=== PATIENT | female | born 1965 | race Asian ===

== ENCOUNTER 2018-04-12 14:51 | Inpatient (IN) | payer OTHER ==
[~2018-04-12] VITALS: Ht 149.9 cm; Wt 49.0 kg
[2018-04-12 17:45] VITALS: BP 161/91
--- NOTE | 2018-04-12 19:41 | NUR ---
PT ARRIVED AT 1730 FROM [facility] ON A GURNEY. PT TRANSFERED TO BED WITH 2 PERSON ASSIST. ALERT AND ORIENTED TO PERSON AND PLACE. TRACH CLEANED AND NECKTIE CHANGED, CONNECTED TO HUMIDIFIED AIR R/T DRY THICK MUCOUS SUCTIONED. PT SOUNDS CONGESTED AND HAS A CONGESTED PRODUCTIVE COUGH. VITALS STABLE. PT UP WITH 2 PERSON PIVOT TRANSFERS, LEANING TOWARDS THE LEFT SIDE. HAS LEFT SIDED WEAKNESS. ATE ALL HER DINNER. Q1H VISUAL CHECKS. FALL PRECAUTIONS IN PLACE. CALL LIGHT WITHIN REACH
[2018-04-12 21:22] VITALS: BP 168/95
[2018-04-13] MEDS ORDERED: HUMALOG100 UNIT/1 (00:49)
[2018-04-13] MEDS ORDERED: PEPCID20 MG PO (00:53)
[2018-04-13] MEDS ORDERED: SENNA-TIME S T1 EACH PO (00:55)
[2018-04-13] MEDS ORDERED: HYDROCHLOROTH12.5 M1 PO (00:56)
[2018-04-13] MEDS ORDERED: REMERON15 MG PO (00:57)
[2018-04-13] MEDS ORDERED: FEVERALL JR 32325 M1 RECTAL (01:03)
[2018-04-13] MEDS ORDERED: LISINOPRIL5 MG PO (01:04)
[2018-04-13] MEDS ORDERED: LIPITOR40 MG PO (01:05)
--- NOTE | 2018-04-13 02:58 | NUR ---
assumed care at approx 1900 evening 04/12. pt lying in bed with head of bed elevated. pt awake and alert sometimes difficult to understand dialect. pt also missing some teeth. pt with trach in place with speaking valve on and trach shield. pt took meds with water tolerating well. pt incontinent of urine and also assisted up to bsc to void. bed alarm on and call light in reach. will continue to monitor.
[2018-04-13 05:26] VITALS: BP 116/64
[2018-04-13 06:10] LABS: HEMATOCRIT 45.5 % (37.0-47.0); HEMOGLOBIN 14.6 gm/dL (12.0-15.0); MCH 25.2 pg (26.0-34.0); MCHC 32.1 g/dL (28.0-37.0); MCV 78.5 fL (80.0-100.0); RBC 5.79 mil/uL (4.20-5.00); RDW 13.7 % (10.5-14.5); WBC 8.2 thou/uL (4.0-11.0)
[2018-04-13 06:21] LABS: CALCIUM 9.2 mg/dL (8.5-10.1); CREATININE 0.7 mg/dL (0.6-1.0); POTASSIUM 3.7 mmol/L (3.5-5.1)
[2018-04-13 07:35] VITALS: BP 117/69
[2018-04-13 11:50] VITALS: BP 113/69
--- NOTE | 2018-04-13 16:17 | NUR ---
ASSUMED CARE AT APPROX 0715. PATIENT A/O X2. DENIES PAIN. TRACH IN PLACE. PATIENT FOUND WITH INNER CANULA OF TRACH DISPLACED. RT NOTIFIED. TRACK MASK IN PLACE OVER TRACH APPLIANCE. PATIENT NOT IN RESPIRATORY DISTRESS, SATS MAINTAINED. RT MANAGED INNER CANULA, REPLACE. ENVIRONMENTAL SERVICES ASSOCIATE NOTIFIED, ROUNDED ON PATIENT. PATIENT PARTICIPATED IN THERAPIES, ST MANAGING DIET CONSISTENCY, NOTED PATIENT MUST HAVE 100% SUPERVISION FOR PO INTAKE. RETAIL MERCHANDISER TECHNICIAN CONSULTED FOR POOR INTAKE. BP LOW, PARAMETERS RECEIVED FOR BP MEDS. FALL PRECAUTIONS IN PLACE. ROUNDED ON FREQUENTLY. WILL CONTINUE TO MONITOR.
[2018-04-13 20:22] VITALS: BP 115/78
--- NOTE | 2018-04-14 03:24 | NUR ---
assumed care at approx 1900 evening 04/13. pt lying in bed with head of bed elevated at change of shift. trach in place with speaker valve on. pt intermittently takes inner cannula of trach out. cleaned cannula and reinserted without difficulty. pt wearing trach shield with 02 10L. pt took hs meds with water tolerating well. pt appears to be sleeping soundly. bed alarm on and call light in reach. will continue to monitor.
[2018-04-14 07:25] VITALS: BP 121/75
--- NOTE | 2018-04-14 10:50 | NUR ---
ASSUMED CARES AT 0700. PT AWAKE, ORIENTED TO PERSON AND PLACE ONLY. VITALS REMAINS STABLE. DENIES PAIN. TRACH REMAINS INTACT AND PATENT. SITE CLEANED, INNER CANNULA CLEANED AND TRACH TIE CHANGED. SECRETIONS REMAIN SEMI-THICK CREAM COLORED. PT COUGHING ALOT THIS AM, DECREASED THROUGHOUT THE AM. ABDOMEN FIRM AND ROUND, LAST BM 04/10, STOOL SOFTENORS ADMINISTERED, BS ACTIVE*4. PT UP WITH 1-2 PERSON PIVOT TRANSFER AND TOLERATED WELL. AMBULATED WITH THERAPY THIS AM. Q1H VISUAL CHECKS. CALL LIGHT WITHIN REACH. FALL PRECAUTIONS IN PLACE
--- NOTE | 2018-04-14 15:24 | HC ---
[facility] [place] [address] [place] [address] CONSULTATION Name: EDEN DUARTE Room #: 506-1 ADM IN M.R.#: [id number] Admission: 04/12/18 Attend Phys: Dheeraj Chadwick MD Discharge: Date of : 61 Report #: [id number] THIS REPORT FOR: //name// CC: Dheeraj Chadwick FAM physician/PCP REFERRING PHYSICIAN: Dr. Chadwick. REASON FOR REFERRAL: Chronic respiratory failure, chronic trach. HISTORY OF PRESENT ILLNESS: The patient is a 53-year-old female who had a stroke in 2017. She had a left hemispheric stroke resulting in respiratory failure. She required tracheostomy. She has been using a speaking valve or Passy-Giselle valve since then. She is admitted to the rehabilitation for ongoing therapy. Previous records show the patient had an acute right frontal hemorrhage. No intervention was performed. The patient was most recently admitted on 04/07/[address] [facility] CT head shows acute right frontal hemorrhage. No surgical intervention was performed. The patient was stabilized and subsequently transferred to the rehabilitation unit of [facility]. The patient is awake, alert, in no distress. She is not able to provide adequate history. PAST MEDICAL HISTORY: As mentioned above, left hemispheric CVA in 2017, chronic respiratory failure with chronic trach tube since 2017, osteoarthritis, hypertension, diabetes mellitus type 2, hyperlipidemia, medical noncompliance. ALLERGIES: None. MEDICATIONS ON TRANSFER: Include insulin, Pepcid, hydrochlorothiazide, Remeron, lisinopril, atorvastatin. FAMILY HISTORY: Noncontributory. SOCIAL HISTORY: She has family in town. No history of tobacco or alcohol use. REVIEW OF SYSTEMS: Deferred as the patient is not a good historian. PHYSICAL EXAMINATION: GENERAL: She is awake, alert, in no distress. VITAL SIGNS: Temperature is 99 degrees Fahrenheit, pulse is 100, respiratory rate is 20, blood pressure 117/69 mmHg, saturation 100%. HEENT: Normocephalic, atraumatic. NECK: Supple, without any lymphadenopathy or thyromegaly. [facility] [address] [place] [address] CONSULTATION Name: EDEN DUARTE Room #: 506-1 ADM IN M.R.#: [id number] Admission: 04/12/18 Attend Phys: Dheeraj Chadwick MD Discharge: Date of : 61 Report #: [id number] tracheostomy. CHEST: Breath sounds are fair due to poor effort. Otherwise, no obvious rales or wheezes. CARDIOVASCULAR: Regular rhythm, no murmurs or gallop. Pulses are 2+/4+ bilaterally. BREASTS: Deferred. ABDOMEN: Soft, nontender, no organomegaly or masses felt. GENITOURINARY: Deferred. RECTAL: Deferred. EXTREMITIES: There is no edema, cyanosis or clubbing. NEUROLOGIC: She has a weak left upper extremity and lower extremities. Has a mild left facial droop. She has some verbalization inability. LABORATORY DATA: Chest x-ray is pending. Electrolytes are normal. WBC is unremarkable. IMPRESSION: 1. Right hemispheric cerebrovascular accident, chronic respiratory failure, chronic trach. 2. Chronic trach, stable from pulmonary standpoint. 3. Recent right intracranial hemorrhage with left hemispheric cerebrovascular accident in 2017. 4. Diabetes mellitus type 2. 5. Hypertension. RECOMMENDATION: Overall, the patient is relatively stable from pulmonary standpoint. Continue routine trach care. Keep saturation 92-90%. DVT and GI prophylaxis is recommended. Given the recent intracranial hemorrhage, recommend SCDs as appropriate. Thank you for this consultation. <ELECTRONICALLY SIGNED> By: Blu Quiles MD 04/14/18 1524 [id number] [id number] Blu Quiles MD /nt
[2018-04-14 19:45] VITALS: BP 121/81
--- NOTE | 2018-04-15 02:47 | NUR ---
ASSUMED CARE AT START OF SHIFT , PT TRACH IN PLACE SUCTIONED THICK VELA BLOOD TINGE SECRETIONS, TOLERATED WELL. ALERT TO SELF AND SITUATION. PO MEDICATION TAKEN WITHOUT DIFF, PT UP TO BSC TO VOID STOOD BUT TEND TO LEAN TO LEFT SIDE. SAT 97 %. BED ALARM ON FOR SAFETY.RESTED WELL THROUGHOUT HOURLY ROUNDS WILL CONINTUE WITH CURRENT PLAN OF CARE, WILL REPORT CHANGES.
[2018-04-15 07:15] VITALS: BP 128/73
--- NOTE | 2018-04-15 10:55 | NUR ---
ASSUMED PT CARE AT 0700. ASSESSED PT AT 0820 AND IS CHARTED. VITAL SIGNS STABLE. PT AWAKE, ALERT/ORIENTED TO PERSON AND TIME. DUE TO LANGUAGE BARRIER IT IS DIFFICULT TO ASSESS FULL ORIENTATION. PT DENIES PAIN AT THIS TIME. TRACH IS ASYMPTOMATIC, NO DRAINAGE NOTED. PT ON ROOM AIR AND SHIELD AT TIMES. NO OTHER CONCERNS AT THIS TIME. WILL CONTINUE WITH CURRENT PLAN OF CARE.
--- NOTE | 2018-04-15 15:05 | NUR ---
PT DOING WELL THIS SHIFT. HAS BEEN UP IN CHAIR MOST OF DAY. PARTICIPATED IN THERAPY AND TOLERATED WELL. NO NEW COMPLAINTS OR CONCERNS AT THIS TIME. WILL CONTINUE WITH CURRENT CARE.
--- NOTE | 2018-04-15 17:51 | NUR ---
SUPERVISED PT FOR DINNER. PT FED SELF AND TOLERATED WELL. NO COUGHING NOTED AFTER SWALLOWING. ASSISTED PT BACK TO BED FOR THE NIGHT WITH MINIMAL ASSISTANCE. PT NEEDED CUEING TO STEP OVER TO BED WITH WALKER, STILL TENDS TO LEAN LEFT. PLACED SHIELD OVER TRACH FOR HUMIDITY.
[2018-04-15 19:55] VITALS: BP 94/58
--- NOTE | 2018-04-16 01:02 | NUR ---
ASSUMED CARE AT START OF SHIFT , TRACH CARE GIVEN WITH KIT TOLERATED WELL, SAT 98%, DENIES SOA OR PAIN, ASSISTED TO BSC , GAIT UNSTEADY LEFT SIDED WEAKNESS NOTED. PO MEDICATION TAKEN EASLIY, RESTING WELL THROUGHOUT HOURLY ROUNDS.
[2018-04-16 08:24] VITALS: BP 110/67
--- NOTE | 2018-04-16 12:29 | NUR ---
team meeting, recommendation re-team.
--- NOTE | 2018-04-16 15:08 | NUR ---
ASSUMED CARE THIS AM, SHIFT ASSESSMENT DONE, BP LOW THIS AM. SITTING IN THE CHAIR THIS AM. TRACHE CARE DONE BY RT. DENIES ANY NAUSEA, VOMITING, PAIN. WILL CONTINUE TO ASSIST WITH ADLs NEEDED.
[2018-04-16 19:31] VITALS: BP 143/86
--- NOTE | 2018-04-17 02:07 | NUR ---
ONCE NEEDED REMINDER TO REMOVE SPEAKING VALVE WHEN SLEEPING TO GET FULL BENEFIT OF HUMIDITY. VALVE BACK ON AND OBSERVED WHILE EATING A LITTLE BIT OF FOOD FROM HOME. LEANS SEVERELY TO THE LEFT WHEN UP WITH WALKER AND GAIT BELT.
[2018-04-17 04:07] LABS: ANION GAP 8 mmol/L (7-16); BUN 15 mg/dL (7-18); CALCIUM 8.8 mg/dL (8.5-10.1); CHLORIDE 98 mmol/L (98-107); CO2 31 mmol/L (21-32); CREATININE 0.8 mg/dL (0.6-1.0); GLUCOSE 374 mg/dL (74-106); MAGNESIUM 2.1 mg/dL (1.8-2.4); POTASSIUM 3.8 mmol/L (3.5-5.1); SODIUM 137 mmol/L (136-145)
[2018-04-17 05:40] LABS: ABSOLUTE NEUTROPHILS 8.6 thou/uL (1.4-8.2); BASOPHILS 0.2 % (0.0-2.0); EOSINOPHILS 3.6 % (0.0-3.0); HEMATOCRIT 37.4 % (37.0-47.0); HEMOGLOBIN 12.1 gm/dL (12.0-15.0); LYMPHOCYTES 8.5 % (24.0-44.0); MCH 25.4 pg (26.0-34.0); MCHC 32.4 g/dL (28.0-37.0); MCV 78.4 fL (80.0-100.0); MONOCYTES 9.3 % (1.0-8.0); PLATELET COUNT 179 thou/uL (150-400); POLYS 78.4 % (36.0-66.0); RBC 4.77 mil/uL (4.20-5.00); RDW 13.2 % (10.5-14.5); WBC 10.9 thou/uL (4.0-11.0)
[2018-04-17 07:15] VITALS: BP 126/80
[2018-04-17 08:29] LABS: CHOLESTEROL 111 mg/dL (<200); HDL CHOLESTEROL 45 mg/dL (>40); LDL CHOLESTEROL 53 mg/dL (<100); TC:HDL 2.5 Ratio (Not establshd); TRIGLYCERIDE 67 mg/dL (<150); VLDL 13 mg/dL (<40)
--- NOTE | 2018-04-17 10:39 | NUR ---
ASSUMED CARES AT 0700. PT IN BED, AWAKE, ALERT AND ORIENTED*4. C/O GENERALIZED BODY PAIN /, ACETAMINOPHEN ADMINISTERED NEEDED. VITALS REMAINED STABLE. TRACH REMAINS INTACT AND PATENT. SECRETIONS REMAIN THICK AND BLOOD TINGED, HUMIDIFIED AIR ON AT NOC, PUSSY TONYA ON DURING DAYS. INNER CANNULA CLEANED NEEDED. LS CLEAR/DIMINISHED. BS ACTIVE *4, ABDOMEN SOFT AND DISTENDED. LAST BM 04/14. PT UP WITH 2 PERSON PIVOT TRANSFERS AND TOLERATED WELL. Q1H VISUAL CHECKS. CALL LIGHT WITHIN REACH. FALL PRECAUTIONS IN PLACE
[2018-04-17 19:39] VITALS: BP 118/78
[2018-04-17 21:07] LABS: GLYCOHEMOGLOBIN (HGB A1C) 8.7 % (4.8-5.6)
--- NOTE | 2018-04-18 03:12 | NUR ---
assumed care at approx 1900 evening 04/17. pt lying in bed at change of shift resting and looking at cell phone. trach in place with speaker valve and trach shield. pt took hs meds with pudding tolerating well. pt with loose, thick secretions from trach. pt appears to be sleeping fairly well with head of bed elevated. call light in reach and bed alarm on. will continue to monitor.
[2018-04-18 07:49] VITALS: BP 128/74
--- NOTE | 2018-04-18 11:44 | NUR ---
ASSUMED CARE OF PT AT 0700. PT IS A&OX4. HAS A TRACH WITH OXYGEN SHILED ON 10.[address]. SUCTION AVAILABLE AT BEDSIDE. PT IS STABLE. REPORTED PAIN (SORENESS) AT TRACH SITE. PAIN MED ADMINISTERED. PT IS UP WITH 1 ASSIST, GB, WALKER. FALL PRECAUTIONS & HOURLY ROUNDING MAINTAINED. LABS & VITALS REVIEWED. WILL CONTINUE TO MONITOR. PT IS CURRENTLY WORKING WITH PHYSICAL THERAPIST.
[2018-04-18 19:43] VITALS: BP 127/81
[2018-04-19 05:45] VITALS: BP 108/75
--- NOTE | 2018-04-19 06:40 | NUR ---
Pt a/o x 4. Trach in place with face shield on O2 10 L / humidifier. Moderate pink/blood tinged secretion, tracheal suction provided, trach care provided, dressing changed. VSS. Denies pain or any other discomfort at this time. Up with assist, gait belt, walker. Tend to lose balance when initially up and walking. Special precautions needed. Bed alarm on. All other fall precautions maintained. Call light within reach. Will continue to monitor.
[2018-04-19 08:38] VITALS: BP 117/83
--- NOTE | 2018-04-19 10:28 | NUR ---
ASSUMED CARES AT 0700. PT AWAKE, ALERT AND ORIENTED *4 BUT FORGETFUL. VITALS STABLE. DENIES PAIN. C/O ABDOMINAL DISCOMFORT AND NAUSEA. ABDOMEN DISTENDED, BS HYPOACTIVE, LAST BM 04/14, DUCOLAX SUPPOSITORY ADMINISTERED. TRACH REMAINS INTACT AND PATENT, SECRETIONS ARE THICK CREAM AND BLOOD TINGED, TRACH SITE CARE COMPLETED AND DRESSING CHANGED. PT UP WITH 1 PERSON ASSIST, LEANS TO THE LEFT SIDE WITH TRANSFERS. CONTINUES TO REQUIRED 100% SUPERVISION WITH MEALS. Q1H VISUAL CHECKS. CALL LIGHT WITHIN REACH. FALL PRECAUTIONS IN PLACE
[2018-04-19 19:52] VITALS: BP 121/74
--- NOTE | 2018-04-20 01:58 | NUR ---
PT ALERT AND ORIENTED X 4. AMB TO BR WITH WALKER AND ASSIST X 1. 02 ON AT 10L PER TRACH MASK. COUGH PRODUCTIVE OF PINK SPUTUM. PT DENIES PAIN OR DISCOMFORT. BED ALARM ON FOR SAFETY. PT APPEARS TO BE SLEEPING ON HOURLY ROUNDS.
--- NOTE | 2018-04-20 06:24 | NUR ---
BLOOD PRESSURE 114/76 THIS MORNING. HCTZ HELD PER PARAMETERS.
[2018-04-20 07:00] VITALS: BP 110/72
--- NOTE | 2018-04-20 10:53 | NUR ---
ASSUMED CARES AT 0700. PT AWAKE, ALERT AND ORIENTED *4 BUT FORGETFUL. REPORTS SHE SLEPT GOOD LAST NIGHT. VITALS STABLE ON RA THIS AM. B/P 110/72, HR 82. HELD LISINOPRIL ORDERED. C/0 GENERALIZED PAIN 5/10, GAVE PRN TYLENOL, PAIN IS 2/10 NOW. REASSESSMENT PER CHART. LAST BM WAS YESTERDAY. SCHEDULE COLACE AND MIRALAX GIVEN SCHEDULED. PT UP TO DINNING ROOM ATE 90% BREAKFAST THIS AM. RT GAVE PT BREATHING TX THIS AM, TRACE IS INTACT AND PATENT, SECRETIONS ARE THICK CREAM AND BLOOD TINGED, TRACH SITE CARE COMPLETED AND DRESSING CHANGED BY RT THIS AM. PT UP WITH 1 PERSON ASSIST WITH MIN ASSIST AND A WALKER. LEANS TO THE LEFT SIDE WITH TRANSFERS. CONTINUES TO REQUIRED 100% SUPERVISION WITH MEALS. Q1H VISUAL CHECKS. CALL LIGHT WITHIN REACH. FALL PRECAUTIONS IN PLACE.
[2018-04-20 20:18] VITALS: BP 125/83
--- NOTE | 2018-04-21 01:35 | NUR ---
assumed care at approx 1900 evening 04/20. pt lying in bed with head of bed elevated resting, denies complaints. pt with trach in place on room air. pts O2 sat checked and 95%. pt took hs meds with applesauce tolerating well. pt appears to be sleeping soundly with hourly rounding checks. bed alarm on and call light in reach. will continue to monitor.
[2018-04-21 06:50] VITALS: BP 116/73
[2018-04-21 07:40] VITALS: BP 115/74
--- NOTE | 2018-04-21 14:28 | NUR ---
ASSUMED CARE AT 0715 THIS MORNING. PT. NOTED TO BE IN BED RESTING. BLOOD SUGAR AT 0600 WAS 206, AT 0700 WAS 143, AT NOON WAS 223. UP TO DINING ROOM FOR MEALS. RESTING IN BED BETWEEN MEALS. PT. ASKED ON SEVERAL OCCASIONS TO TURN WHILE IN BED. SHE REFUSED. PT. HAS TRACH. TRACH INNER PART IN CUP ON NIGHTSTAND SOAKING. SHE WAS 92% ON ROOM AIR TODAY. PULMONARY CALLED FOR TRACH CARE KITS. HE INSTRUCTED STAFF TO CALL CS FOR THIS (THEY ARE CLOSED ON ). HE STATED HE WILL PROVIDE STAFF WITH [facility] FOR TODAY THEY HAVE A LIMITED SUPPLY. NO IV'S. DENIES PAIN.
[2018-04-21 23:23] VITALS: BP 127/77
--- NOTE | 2018-04-22 02:06 | NUR ---
PT ALERT AND ORIENTED X 4. AMB TO BR WITH WALKER AND ASSIST X 1. LEANS TO THE LEFT WHEN AMB. TRACH PATENT. COUGHING UP PINK-TINGED SPUTUM. PT PULLS OUT INNER CANNULA AT TIMES. INSTRUCTED TO LEAVE CANNULA IN PLACE. CANNULA REINSERTED INTO TRACH SEVERAL TIMES THIS SHIFT AFTER CLEANING. PT DENIES PAIN OR DISCOMFORT. BED ALARM ON FOR SAFETY. PT APPEARS TO BE SLEEPING ON HOURLY ROUNDS.
[2018-04-22 07:30] VITALS: BP 114/76
--- NOTE | 2018-04-22 10:29 | NUR ---
ASSUMED CARES AT 0700. PT AWAKE, ALERT &ORIENTED*4. TROUBLE UNDERSTANDING SOME INFORMATION R/T LANGUAGE BARRIER. LS SOUNDS COURSE, COUGHING THICK CREAMY/BLOOD-TINGED, TRACH REMAINS INTACT AND PATENT. INNER CANNULA CLEANED BID AND PRN WITH WARM SOAPY WATER. PUSSY TONYA IN PLACE DURING ACTIVITIES. ABDOMEN SOFT AND DISTENDED, LAST BM 04/19, BOWEL PROGRAM STARTED. BS ACTIVE*4. ALL OTHER VITALS STABLE. PT DENIES PAIN. UP WITH 1 PERSON MIN ASSIST, CONTINUES TO LEAN ON THE LEFT BUT TOLERATES ALL ACTIVITY WELL. Q1H VISUAL CHECKS. CALL LIGHT WITHIN REACH. FALL PRECAUTIONS IN PLACE
--- NOTE | 2018-04-22 14:09 | NUR ---
cm visited [facility] rt question on medicaid and disability. bedside nurse passed on that pt wanted to discuss this topic. referral sent to [facility]. education with [facility] that rep from [facility] will visit with her. " ok talk with boyfriend and son"/pt. cm left message with pt son. will cont following as needed for dc needs.
[2018-04-22 19:26] VITALS: BP 124/86
--- NOTE | 2018-04-23 05:28 | NUR ---
Assumed pt care at 1900, reassessment complete er [facility]. Pt A&Ox3, able to make needs known. Reposition and turn q2hrs as needed with heels offloaded as tolerated. No s/sx of resp distress, pt denies SOA or difficulty breathing. Trach in place, new inner cannula provided. Pt denies pain. 100% supervision with all PO intake, swallowing precautions maintained. Pt currently resting in bed, call light within reach, bed alarm on, will continue to be monitored.
[2018-04-23 05:34] LABS: CALCIUM 9.5 mg/dL (8.5-10.1); CREATININE 0.7 mg/dL (0.6-1.0); MAGNESIUM 2.4 mg/dL (1.8-2.4); POTASSIUM 3.8 mmol/L (3.5-5.1)
[2018-04-23 05:38] LABS: ABSOLUTE NEUTROPHILS 3.6 thou/uL (1.4-8.2); BASOPHILS 0.5 % (0.0-2.0); EOSINOPHILS 19.3 % (0.0-3.0); HEMATOCRIT 36.9 % (37.0-47.0); HEMOGLOBIN 11.8 gm/dL (12.0-15.0); LYMPHOCYTES 23.9 % (24.0-44.0); MCH 24.8 pg (26.0-34.0); MCHC 32.1 g/dL (28.0-37.0); MCV 77.3 fL (80.0-100.0); MONOCYTES 8.1 % (1.0-8.0); PLATELET COUNT 240 thou/uL (150-400); POLYS 48.2 % (36.0-66.0); RBC 4.77 mil/uL (4.20-5.00); WBC 7.6 thou/uL (4.0-11.0)
[2018-04-23 08:37] VITALS: BP 122/81
--- NOTE | 2018-04-23 12:36 | NUR ---
team meeting, recommendation :30 or earlier if pt/family safe dc. home with hh ( pt, ot, st, nursing, bath aid, sw), use of shower chair. family training for trach care. will cont following as needed for dc needs.
--- NOTE | 2018-04-23 14:15 | H ---
[facility] [place] [address] [place] [address] HISTORY AND PHYSICAL Name: EDEN DUARTE Room #: 506-1 ADM IN M.R.#: [id number] Admission: 04/12/18 Attend Phys: Dheeraj Chadwick MD Discharge: Date of : 61 Report #: [id number] THIS REPORT FOR: //name// CC: Dheeraj Chadwick [facility] physician/PCP DATE OF SERVICE: 04/13/2018 HISTORY AND PHYSICAL/POSTADMISSION PHYSICIAN EVALUATION HISTORY OF PRESENT ILLNESS: The patient is a 53-year-old female with a prior history of a left hemispheric CVA back in 2017, status post respiratory failure and tracheostomy with speaking valve. She was living in the home setting with the chronic trach apparently independent with basic ADLs and IADLs per report. She was subsequently admitted to [facility] 04/07/2018 with weakness and inability to walk. Head CT showed an acute right frontal hemorrhage. No intervention was performed. The patient was followed by Neuro and Pulmonary services. She was gradually medically stabilized and now transferred to the acute in-hospital inpatient rehabilitation jiménez here at [facility]. ALLERGIES: No known drug allergies. PAST MEDICAL HISTORY: She had the prior left hemispheric stroke in 2017 shows respiratory failure with chronic trach since 2017, history of degenerative arthritis, hypertension, diabetes mellitus type 2, hyperlipidemia, hypokalemia, medical noncompliance. FAMILY HISTORY: Noncontributory. MEDICATIONS: Please see the full medication listing. This includes vitamins, herbals, and supplements per best report. SOCIAL HISTORY: Somewhat limited. She does have involved family that were concerned with her weakness and was noted to be premorbidly independent with ADLs and IADLs. I am unclear at this point whether she utilized an adaptive aid premorbidly. REVIEW OF SYSTEMS: Did not offer any current complaints of chest pain, shortness of breath, abdominal discomfort. No complaints of extremity pain. PHYSICAL EXAMINATION: GENERAL: A 53-year-old small statured, thin female in no obvious distress. VITAL SIGNS: Last recorded temperature 98.5, pulse 112, respirations 20, blood pressure 116/64. NEUROLOGIC: The patient is alert. She has some left facial droop with [facility] [address] [place] [address] HISTORY AND PHYSICAL Name: EDEN DUARTE Room #: 506-1 [facility] IN [facility].#: [id number] Admission: 04/12/18 Attend Phys: Dheeraj Chadwick MD Discharge: Date of : 61 Report #: [id number] depressed left nasolabial fold. Pleasant and cooperative. She is able to perform simple verbalizations. She has the chronic tracheostomy. CHEST: Sounded clear. CARDIOVASCULAR: Regular rate and rhythm. ABDOMEN: Bowel sounds positive, nontender. GENITOURINARY AND RECTAL: Deferred. EXTREMITIES: Functional range of motion of the right upper and right lower extremity strength is grade 4 to 4-/5. DTRs are trace. Left upper extremity was weaker maybe a 3-3+/5. DTRs were trace on the left lower extremity had minimal volitional movement less than antigravity and appeared to have decreased trace to no reflex. There is no focal calf swelling. No distal lower extremity edema. She is on a mechanically altered, carb-controlled diet. ASSESSMENT: A 53-year-old female with the following problem list: 1. Right intracerebral hemorrhage handled conservatively. 2. Left-sided hemiparesis, lower extremity greater than upper extremity with some left facial droop. 3. Chronic respiratory failure, status post trach with speaking valve since the prior CVA, left hemispheric back in 2017. 4. Diabetes mellitus type 2. 5. Hypertension. 6. Hyperlipidemia. 7. History of medical noncompliance. PLAN: The patient is admitted for acute in-hospital inpatient rehabilitation. From a post-admission physician evaluation, there are no relevant changes since the preadmission screening. Please see the above review of prior and current medical and functional conditions and comorbidities. Please see the patient's previous and current functional status. This is going to be further investigated with family history. Risk of complications include her multiple medical comorbidities and decreased functional status. Initial plan of care involves the interdisciplinary acute inpatient rehabilitation program with the goal of maximizing her functional independence, so she can hopefully return back to her prior living situation. Measurable functional goals would be for her to become modified independent with transfers, mobility and ADLs, so she can hopefully return back to her prior living situation. Prognosis is reasonably good with estimated length of stay probably at least 2-3 weeks and likely longer if warranted. Potential barriers would include her multiple medical comorbidities and decreased functional status. <ELECTRONICALLY SIGNED> By: Dheeraj Chadwick MD 04/23/18 1415 0738 [id number] Dheeraj Chadwick MD /nt
--- NOTE | 2018-04-23 14:15 | PLAN ---
[facility] [place] [address] [place] [address] REHAB UNIT PLAN OF CARE Name: EDEN DUARTE Room #: 506-1 ADM IN M.R.#: [id number] Admission: 04/12/18 Attend Phys: Dheeraj Chadwick MD Discharge: Date of : 61 Report #: [id number] THIS REPORT FOR: //name// CC: Dheeraj Chadwick [facility] physician/PCP DATE OF SERVICE: 04/15/2018 PROGRESS NOTE/OVERALL PLAN OF CARE SUBJECTIVE: The patient is seen back today in followup. She is in no distress. Last recorded temperature 36.9, pulse 98, respirations 20, blood pressure 127/64. Issues with the inner cannula of her trach are noted. Appreciate Pulmonary Medicine involvement. Transfers are mod assist, gait, max assist 60 feet front-wheeled walker. In occupational therapy, lower body dressing is min assist. In speech therapy, she did have a bedside swallow evaluation on 04/13/2018 with recommendations for mechanical soft solid ground meat, thin liquids via cup, sip with no straws, no mixed consistencies. PLAN: Again the overall plan of care is based on the preadmission screen, post-admission physician evaluation and information garnered from therapy assessments. 1. Estimated length of stay is probably going to be at least 2 weeks to 3 weeks pending progress. 2. Medical prognosis is reasonably good. 3. Anticipated interventions includes the interdisciplinary acute inpatient rehabilitation program with PT, OT and speech, rehabilitation nursing assisting regarding medication management, skin care prophylaxis, bowel and bladder issues and nursing education. We will have the multiple [employer] ax consultant physicians involved. 4. Anticipated functional outcomes would be for the patient to hopefully become modified independent with the walker level, improve with her swallowing, improve with overall functional independence with ADLs with the point that she can return back to the home setting. 5. Discharge destination would be back to her home setting with involved family. She is noted to live with son and was independent without adaptive device. 6. Expected therapy by discipline includes PT, OT and speech 1 hour per day each five days a week throughout the duration of the acute inpatient rehabilitation stay. <ELECTRONICALLY SIGNED> By: Dheeraj Chadwick MD 04/23/18 1415 [id number] [id number] Dheeraj Chadwick MD /[facility]
--- NOTE | 2018-04-23 19:30 | NUR ---
ASSUMED CARES AT 0700. REPORTED SLEPT GOOD LAST NIGHT. PT AWAKE, ALERT &ORIENTEDX4. TROUBLE UNDERSTANDING SOME INFORMATION R/T LANGUAGE BARRIER BUT ABLE TO VOICE HER NEDS. LS SOUNDS COARSE, COUGHING LESS TODAY. TRACH REMAINS INTACT AND PATENT. INNER CANNULA CLEANED BREATHING TX GIVEN BY RT. DISCUSSED WITH RT TO EDUCATE PT ABOUT TRACH CARE WHEN SEEING PT SINCE PT CAN BE FORGETFUL. REASSESSMENT PER CHART. SKIN INTACT. ABDOMEN SOFT AND DISTENDED, LAST BM WAS YESTERDAY. CONTINUE TO BE SUPERVISION EACH MEALS. PT UP TO DINNING ROOM FOR MEALS. VITALS STABLE. PT DENIES PAIN. UP WITH 1 PERSON MIN ASSIST, CONTINUES TO LEAN ON THE LEFT BUT TOLERATES ALL ACTIVITY WELL. Q1H VISUAL CHECKS FOR NEEDS AND SAFETY. CALL LIGHT WITHIN REACH. FALL PRECAUTIONS IN PLACE. GAVE REPORT TO NIGHT NURSE TO CONTINUE TO MONITOR.
[2018-04-23 20:30] VITALS: BP 137/77
--- NOTE | 2018-04-24 03:10 | NUR ---
assumed care at approx 1900 evening 04/23. pt lying in bed with head of bed elevated resting and looking at phone. pt denies complaints. trach in place with pts 02 sat wnl. pt took hs meds with applesauce tolerating well. pt appears to be sleeping soundly with hourly rounding checks. bed alarm on and call light in reach. will continue to monitor.
[2018-04-24 05:58] VITALS: BP 127/79
[2018-04-24 10:13] VITALS: BP 111/65
--- NOTE | 2018-04-24 13:59 | NUR ---
cm received phone call from pt sig other stated " i was told by [facility] to call you, who are you?"/sig other [phone]. education on rn cm and dcp 05/01/18 . cont to re- education on family training with therapy and who is going to be helping pt when returns home, medication management , trach care, no driving, use of shower chair, not sit down in tub and home health choice. " oh yes i will look for bath chair, might be at other house. come in on sunday at 1300. [facility] is ok for home health."/sig other. then he hung up. cm passed on information to rehab team on training time.
--- NOTE | 2018-04-24 15:53 | NUR ---
ASSUMED CARE OF PT AT 0715. PT IS A&OX4. IS ON ROOM AIR. HAS TRACH IN PLACE WITH SPEAKING VALVE. SUCTION KIT & EMERGENCY KIT AT BEDSIDE. DENIES PAIN. IS STABLE. IS UP WITH 1 ASSIST, GB, WALKER. FALL PRECAUTIONS & HOURLY ROUNDING MAINTAINED. PT IS 100% SUPERVISION AT ALL MEALS. LABS & VITALS REVIEWED. PT IS CURRENTLY IN ROOM IN BED RESTING. CALL LIGHT WITHIN REACH. WILL CONTINUE TO MONITOR.
[2018-04-24 19:40] VITALS: BP 117/80
--- NOTE | 2018-04-25 00:40 | NUR ---
PT ALERT AND ORIENTED X 4. AMB TO BR WITH WALKER AND ASSIST X 1. LEANS TO THE LEFT WHEN AMB. TRACH PATENT. TRACH CARE DONE PER RT. COUGHING LESS TONIGHT. NO SPUTUM NOTED. PT TAKES MEDS IN APPLESAUCE WITHOUT DIFFICULTY. PT DENIES PAIN OR DISCOMFORT. BED ALARM ON FOR SAFETY. PT APPEARS TO BE SLEEPING ON HOURLY ROUNDS.
[2018-04-25 09:25] VITALS: BP 111/80
--- NOTE | 2018-04-25 14:44 | NUR ---
ASSUMED CARE AT APPROX 0715. PATIENT A/O X3. FORGETFUL. IMPULSIVE AT TIMES. VSS, BP MED HELD PER PARAMETERS. DENIES PAIN. C/O SOA. TRACH DRESSING CHANGED AND PATIENT SUCTIONED X2 THIS DATE. CXR NEGATIVE, LUNG SOUNDS REMAIN CLEAR. 100% SUPERVISION MAINTAINED FOR MEALS. PATIENT PARTICIPATING IN THERAPY. FALL PRECAUTIONS IN PLACE. WILL CONTINUE TO MONITOR.
[2018-04-25 20:02] VITALS: BP 112/82
--- NOTE | 2018-04-26 00:33 | NUR ---
PT ALERT AND ORIENTED X 4. AMB TO BR WITH WALKER AND ASSIST X 1. LEANS TO THE LEFT. TRACH PATENT. SUCTIONED X 1 FOR SMALL AMT BLOOD-TINGED SPUTUM. 02 ON AT 15 L PER TRACH SHIELD AT HS. PRODUCTIVE COUGH. PT TAKES MEDS IN APPLESAUCE WITHOUT DIFFICULTY. PT DENIES PAIN OR DISCOMFORT. BED ALARM ON FOR SAFETY. PT APPEARS TO BE SLEEPING ON HOURLY ROUNDS.
[2018-04-26 07:15] VITALS: BP 113/74
--- NOTE | 2018-04-26 13:43 | NUR ---
ASSUMED CARE AT APPROX 0715. PATIENT A/O X4. URDU IS HER SECOND LANGUAGE BUT ABLE TO COMMUNICATE BASIC NEEDS. VSS, BP MED HELD PER PARAMETERS. BS MONITOR AND INSULIN AND MEDS GIVEN ORDERED. TAKES MEDS WITH APPLE SAUCE. HAD BACK PAIN EARLIER, TOOK PRN TYLENOL AND DENIES PAIN NOW. C/O COUGH. HAS LITTLE BLOOD STREAK IN SPUTUM BUT GETTTING BETTER. TRACH DRESSING CHANGED PER RT. AND PATIENT SUCTIONED NEED. CXR NEGATIVE, LUNG SOUNDS REMAIN CLEAR. 100% SUPERVISION MAINTAINED FOR MEALS. LAST BM WAS 2DAYS AGO, CONTINUE TO BE ON LAXATIVE DAILY. PATIENT PARTICIPATING IN THERAPY. OFFERED SUPPORTIVE CARE. ENCOURAGED PT TO VOICE HER NEEDS. PT UP TO DINNING ROOM FOR MEALS. TRANSFER WITH CGA WITHOUT DIFFICUTLY. FALL PRECAUTIONS IN PLACE. PT IS RESTING IN BED AND LISTENING MUSICS FROM HER CELL PHONE. BED ALARM IS ON. WILL CONTINUE TO MONITOR.
[2018-04-26 20:28] VITALS: BP 155/108
[2018-04-26 20:29] VITALS: BP 146/99
--- NOTE | 2018-04-27 02:12 | NUR ---
assumed care at approx 1900 evening 04/26. pt lying in bed with head of bed elevated resting and looking on cellphone. pt pleasant and cooperative, denies complaints. trach in place with speaker valve present. no trach care needed. pt took hs meds with applesauce tolerating well. pt appears to be sleeping soundly with hourly rounding checks. bed alarm on and call light in reach. will continue to monitor.
[2018-04-27 06:09] VITALS: BP 140/90
[2018-04-27 07:30] VITALS: BP 132/91
[2018-04-27 16:29] VITALS: BP 138/76
--- NOTE | 2018-04-27 18:13 | NUR ---
ASSUMED CARE AT APPROX 0715. PT WAS SO SLEEPY THIS AM. REFUSED TO GET UP FOR BREAKFAST, BUT SHE GOT UP LATER AND REQUESTED FOR A SHOWER AND BREAKFAST, VOICE TEACHER GAVE PT SHOWER, TRACE COLAR CHANGED. PT UP TO DINNING ROOM AND ATE 100% BREAKFAST. PT ALERT AND ORIENTED X4, ABLE TO COMMUNICATE BASIC NEEDS. VSS. BS MONITOR AND INSULIN AND MEDS GIVEN ORDERED. TAKES MEDS WITH APPLE SAUCE. C/O COUGH STILL ON MUCINEX, HAS LITTLE BLOOD STREAK IN SPUTUM. SUCTIONING PER NURSE AND RT NEED. LUNG SOUNDS COARSE AT TIME. CHEST XRAY IS NEGATIVE. 100% SUPERVISION MAINTAINED FOR MEALS. DR CAGE WAS HERE AND SUGGESTED FOR PULMONARY DOCTOR TO SEE IF PT CAN BE OFF TRACE TOMORROW. LAST BM WAS 3 DAYS AGO, CONTINUE TO BE ON LAXATIVE DAILY. MAY ASK NIGHT NURSE TO GIVE PT SUPPOSITORY. PATIENT PARTICIPATING IN THERAPY. OFFERED SUPPORTIVE CARE. ENCOURAGED PT TO VOICE HER NEEDS TRANSFER WITH CGA WITHOUT DIFFICUTLY. FALL PRECAUTIONS IN PLACE. PT IS RESTING IN BED AND LISTENING MUSICS FROM HER CELL PHONE. BED ALARM IS ON. WILL GIVE REPORT TO NIGHT NURSE TO CONTINUE TO MONITOR.
[2018-04-27 19:20] VITALS: BP 117/89
--- NOTE | 2018-04-28 02:13 | NUR ---
assumed care at approx 1900 evening 04/27. pt lying in bed with head of bed elevated looking at phone and dozing off and on. trach in place with pt denying complaints. pt using speaker valve off and on. pt took hs meds with applesauce tolerating well. pt appears to be sleeping soundly with hourly rounding checks. bed alarm on and call light in reach. will continue to monitor.
[2018-04-28 05:43] LABS: HEMATOCRIT 40.7 % (37.0-47.0); MCH 24.9 pg (26.0-34.0); MCHC 32.1 g/dL (28.0-37.0); MCV 77.8 fL (80.0-100.0); RBC 5.23 mil/uL (4.20-5.00); WBC 7.5 thou/uL (4.0-11.0)
[2018-04-28 05:47] LABS: CALCIUM 9.6 mg/dL (8.5-10.1); CREATININE 0.7 mg/dL (0.6-1.0); MAGNESIUM 2.2 mg/dL (1.8-2.4); POTASSIUM 3.6 mmol/L (3.5-5.1)
[2018-04-28 06:11] VITALS: BP 106/77
[2018-04-28 07:35] VITALS: BP 116/72
--- NOTE | 2018-04-28 11:02 | NUR ---
ASSUMED PT CARE AT 0700. ASSESSMENT COMPLETE AND IS CHARTED AT 1030. VITAL SIGNS STABLE. PT AWAKE, ALERT/ORIENTED X4. MOIST PRODUCTIVE COUGH NOTED PRODUCING CLEAR SPUTUM. PT WOULD LIKE TO BE SUCTIONED. ASSISTED PT TO BR WITH MINIMAL ASSIST, GAIT BELT AND WALKER. PT CONTINUES TO LEAN BACK AT TIMES WHEN SITTING ON EDGE OF BED. NO ISSUES WITH WALKING. RT NOTIFIED FOR SUCTIONING. PT DENIES PAIN. WILL CONTINUE WITH CURRENT CARE.
--- NOTE | 2018-04-28 16:18 | NUR ---
PT DOING WELL THIS SHIFT. LESS CONGESTED THAN THIS MORNING. PT HAS BEEN UP TO DINING ROOM FOR BREAKFAST AND LUNCH. FED SELF AND TOLERATED WELL. PT RESTING IN BED AT THIS TIME. NO NEW CONCERNS AT THIS TIME. WILL CONTINUE CURRENT CARE.
--- NOTE | 2018-04-28 19:00 | HC ---
[facility] [place] [address] CONSULTATION Name: EDEN DUARTE Room #: 506-1 ADM IN M.R.#: [id number] Admission: 04/12/18 Attend Phys: Dheeraj Chadwick MD Discharge: Date of : 61 Report #: [id number] THIS REPORT FOR: //name// CC: Dheeraj Chadwick FAM physician/PCP DATE OF SERVICE: 04/20/2018 NEUROBEHAVIORAL STATUS EXAM ATTENDING PHYSICIAN: Dheeraj Chadwick MD. AVIATION TACTICAL READINESS OFFICER: Juan Manuel Oneill, PhD. CLINICAL PRESENTATION: The patient is a 53-year-old female from [facility], admitted to the rehab unit for comprehensive inpatient rehabilitation program to improve functional mobility, activities of daily living and self-care and mental status secondary to deficits from a cerebrovascular accident. Her assessment on admission to rehab includes a right intracerebral hemorrhage, left-sided hemiparesis, lower extremity greater than upper extremity with left facial droop, chronic respiratory failure status post trach with speaking valve since a left hemisphere stroke in 2017. Her diagnoses also include diabetes mellitus type 2, hypertension, hyperlipidemia and a history of medical noncompliance. A complete description of her medical condition, history and medications can be found in her medical record. Neuropsychological consultation was requested to provide assistance in the assessment of cognitive and emotional status and to provide recommendations and services. Prior to this most recent admission, she reports living with the assistance of her son. She has two children. Decreased auditory comprehension is noted and she is not a reliable historian. Language likely interferred with comprehension as her primary language is laotion. TECHNIQUES UTILIZED: Clinical interview, review of medical records, staff consultation and behavioral observation, mini mental status exam 2 standard version. EXAMINATION FINDINGS: The patient was unable to describe the reason for her hospitalization. Expressive speech appears articulate. However, deficits in auditory comprehension are moderate to severe. She stated that she is unable to read. She describes her symptoms to include headache, memory, difficulty with walking, anxiety and depression. However, variability in auditory comprehension is noted and as indicated, the the accuracy of her responses are uncertain. However, her mood appears anxious and depressed. Her performance on the mini mental status exam 2 brief version was extremely [facility] [address] [place] [address] CONSULTATION Name: EDEN UDARTE Room #: 506-1 ADM IN [facility].#: [id number] Admission: 04/12/18 Attend Phys: Dheeraj Chadwick MD Discharge: Date of : 61 Report #: [id number] low with a raw score of 6/16. She was 0/3 for initial registration. Difficulty with auditory comprehension was noted with initial registration. The patient was unable to understand instructions. She was 3/5 for orientation to time and 2/[address], 0/3 for immediate recall of 3 items. However, decreased auditory comprehension contributed over all performance. The patient was unable to complete any of serial 7's. Naming was within normal limits. As indicated, she is also showing an impairment in visual spatial construction. DIAGNOSTIC IMPRESSION: Major vascular neurocognitive disorder, without behavior disorder, extent to be determined, likely in the moderate range. Adjustment disorder with depressed and anxious mood. RECOMMENDATIONS: Consider a treatment program for depression that includes the use of an antidepressant medication. She will also benefit from verbal praise and complements about participation and success during therapies. She will require 24 hour supervision to maintain safety. Assistance with the management of medication, finances and nutrition is indicated. Family education is necessary as to the extent of help that she is requiring. Thank you very much for allowing me to provide the consultation on this patient. <ELECTRONICALLY SIGNED> By: Juan Manuel Oneill, PhD 04/28/18 1900 [id number] Juan Manuel Oneill, PhD /nt
[2018-04-28 19:11] VITALS: BP 111/77
--- NOTE | 2018-04-29 02:19 | NUR ---
PT ALERT AND ORIENTED X 4. AMB TO BR WITH WALKER AND ASSIST X 1. LEANS TO THE LEFT. TRACH INTACT. COUGH PRODUCTIVE OF BLOOD TINGED SPUTUM. SUCTIONED AND TRACH CARE DONE BY RT. PT TOOK HS MEDS IN APPLESAUCE. SOME DIFFICULTY SWALLOWING MEDS LAST EVENING ESPECIALLY COLACE. BLOOD SUGAR 124 AT HS. NO INSULIN NEEDED. PT DENIES PAIN OR DISCOMFORT. BED ALARM ON FOR SAFETY. PT APPEARS TO BE SLEEPING ON HOURLY ROUNDS.
--- NOTE | 2018-04-29 05:56 | NUR ---
BP 117/80 THIS MORNING. HCTZ HELD PER PARAMETERS. PT ALSO REFUSED SWISH AND SPIT THIS MORNING.
[2018-04-29 07:50] VITALS: BP 118/81
--- NOTE | 2018-04-29 12:49 | NUR ---
Nutrition followup: Pt continues on mechanically altered ground diet, ADA. ST has discharged pt from dysphagia therapy. Intake is variable 25-100% of meals but does well with glucerna supplements which she receives BID. No new weight-request. Planned D/C 05/01.
--- NOTE | 2018-04-29 18:56 | NUR ---
ASSUMED CARE AT APPROX 0715. PATIENT A/O X4. DENIES PAIN. TRACH IN PLACE. ENT CONSULTED FOR REMOVAL. STATED WOULD NEED NOC DESAT STUDY PRIOR TO D/C TRACH. PATIENT EDUCATED, CM NOTIFIED, ENT TO ROUND TOMORROW. PATIENT UP X1 SBA. FALL PRECAUTIONS IN PLACE. PATIENT UP TO CHAIR FOR MEALS. FLUIDS ENCOURAGED. TRACH DRESSING CLEANED, DRY AND INTACT. PATIENT PARTICIPATED IN THERAPY AND FAMILIY TRANINING. ENCOURGED TO TURN [id number] WHILE IN BED. RESTING IN WHEELCHAIR AT CHANGE OF SHIFT.
[2018-04-29 20:03] VITALS: BP 144/78
--- NOTE | 2018-04-30 01:28 | NUR ---
PT ALERT AND ORIENTED X 4. AMB TO BR WITH WALKER AND ASSIST X 1. LEANS TO THE LEFT. LEFT SIDED WEAKNESS. TRACH INTACT AND CAPPED. PT OLYA WELL. NOCTURNAL DESAT STUDY IN PROGRESS. HAS NOT ALARMED SO FAR TONIGHT. COUGH PRODUCTIVE CLEAR SPUTUM. TRACH CARE AND SUCTION X 1 PER RT. RT REPORTED BLOOD-TINGED SPUTUM WITH SUCTIONING. PT TOOK MEDS WITH APPLESAUCE WITHOUT DIFFICULTY. BLOOD SUGAR 88 AT HS. NO INSULIN NEEDED. PT DENIES PAIN OR DISCOMFORT. BED ALARM ON FOR SAFETY. PT APPEARS TO BE SLEEPING ON HOURLY ROUNDS.
[2018-04-30 08:17] VITALS: BP 119/78
--- NOTE | 2018-04-30 13:43 | NUR ---
team meeting, recommendation dc 30th with [facility] ( pt,ot,sw, bath aid), fww, sig other reported to rehab, he will pick her up after lunch around 1300.
--- NOTE | 2018-04-30 15:33 | NUR ---
ASSUMED CARE AT APPROX 0715. REPORTS SLEPT GOOD. SAT WELL AT NIGHT PER NIGHT RN. PATIENT A/O X4. DENIES PAIN. TRACH IN PLACE. ENT CAME TALKED TO PT AND PT'S SON AND REMOVED PT TRACE. DR. FERNÁNDEZ INSTRUCTED TO CHANGE DRESSING QID AND PRN. RT CAME TO GAVE BREATHING TX AND SUCTION PER JONNIE. PATIENT EDUCATED. PATIENT UP X1 SBA. ENCOURAGED PT TO WALK WITHOUT USING WC. PT WILL BE DISCHARGE TOMORROW AND FOLLOW UP WITH DR. FERNÁNDEZ AFTER DC. FALL PRECAUTIONS IN PLACE. PATIENT UP TO CHAIR FOR MEALS. FLUIDS ENCOURAGED. TRACH DRESSING DRY AND INTACT. PATIENT PARTICIPATED IN THERAPY AND FAMILIY TRANINING. ENCOURGED TO TURN [id number] WHILE IN BED. CALL LIGHT WITHIN REACH.CHECK FRENQUENTLY FOR NEEDS AND SAFETY.
[2018-04-30 19:38] VITALS: BP 149/93
[2018-05-01] VITALS (7 sets, daily range): BP systolic 126; BP diastolic 79
--- NOTE | 2018-05-01 04:44 | NUR ---
TURNING SELF IN BED AND IS VERY GOOD ABOUT SITTING UP IN BED FOR PILLS. TRACH SITE COVERED WITH CLEAN DRY GAUZE DRESSING.
--- NOTE | 2018-05-01 10:48 | NUR ---
ASSUMED CARE AT APPROX 0715. PATIENT A/O X4. DENIES PAIN. FORGETFUL AT TIMES, CALLED AFTER SHE HAD TRANSFERED HERSELF TO BED. PATIENT EDUCATED ABOUT FALLS. FALL PRECAUTIONS IN PLACE. UP X1 ASSIST TO TOILET. TRACH DRESSING C/D/I, CHANGED THIS AM. SMALL AMOUNT OF CLEAR DRAINAGE ON DRESSING, NO DRAINAGE FROM STOMA. PATIENT STATES HER FAMILY WILL COME TO PICK HER UP TODAY BUT IS UNSURE OF THE TIME. CM ATTEMPTED TO CALL FAMILY, LEFT MESSAGE. PRINT OUTS PROVIDED REGARDING OSTOMY SITE CARE, WILL CONTINUE TO EDUCATE PATIENT AND FAMILY. WILL CONTINUE TO MONITOR.
[2018-05-01] MEDS ORDERED: COLACE100 MG PO (10:58)
[2018-05-01] MEDS ORDERED: METFORMIN HCL500 MG PO (10:59)
[2018-05-01] MEDS ORDERED: LIPITOR40 MG PO (13:23)
[2018-05-01] MEDS ORDERED: SENNA-TIME S T1 EACH PO (13:23)
[2018-05-01] MEDS ORDERED: FEVERALL JR 32325 M1 RECTAL (13:23)
[2018-05-01] MEDS ORDERED: REMERON15 MG PO (13:23)
[2018-05-01] MEDS ORDERED: PEPCID20 MG PO (13:23)
[2018-05-01] MEDS ORDERED: LISINOPRIL5 MG PO (13:23)
--- NOTE | 2018-05-01 13:29 | NUR ---
PT. DISCHARGING TODAY TO HOME WITH [facility]. FAXED DC ORDERS/SUMMARY TO [facility] AND SPOKE WITH TOBY IN ADM. SHE RECEIVED DC ORDERS AND WILL NOTIFY PT. TIME OF VISITS.
--- NOTE | 2018-05-02 17:46 | HC ---
[facility] [place] [address] [place] [address] CONSULTATION Name: EDEN DUARTE Room #: 506-1 [facility] IN M.R.#: [id number] Admission: 04/12/18 Attend Phys: Dheeraj Chadwick MD Discharge: 05/01/18 Date of : 61 Report #: [id number] THIS REPORT FOR: //name// CC: Dheeraj Chadwick [facility] physician/PCP DATE OF SERVICE: 04/30/2018 REASON FOR CONSULTATION: Possible trach removal. HISTORY OF PRESENT ILLNESS: The patient is a 53-year-old female who was admitted for rehabilitation. She had a hemispheric stroke in 2017 in the left side resulting in respiratory failure and had a tracheostomy tube placed at that time. Since then, she has been using a speaking valve/ [place] valve. [facility] for possible acute right frontal hemorrhage; however, no intervention was performed at that time. Subsequently, after stabilization, she was brought here for rehabilitation [facility]. While here, she has been evaluated by Speech Therapy as well as by Respiratory Therapy and verbal communication with both Pulmonary and Speech Therapy. She seems to be doing well and has no ongoing pulmonary or speech therapy, need for a tracheostomy. More specifically, there is no evidence of any gross aspiration during her present diet and her pulmonary function seems to be adequate for protection of her airway. PAST MEDICAL AND SURGICAL HISTORY: Notable for the above-mentioned issues along with osteoarthritis, hypertension, diabetes type 2, hyperlipidemia. ALLERGIES TO MEDICATION: None. MEDICATIONS: Noted on the hospital chart. FAMILY HISTORY: Noncontributory. REVIEW OF SYSTEMS: Not attempted as the patient does not communicate as [place] is not her nondalton tongue. PHYSICAL EXAMINATION: GENERAL: She appears alert and oriented. She responds to my verbal stimulus. She is afebrile. Her tracheostomy has been capped since last night. She has not had any issues with desaturation. She has had no substantial issues with pulmonary toilet. She has already had several meals with the trach capped without difficulty. HEENT: Examination of the oral cavity shows absence of teeth. Oropharynx appears unremarkable. NECK: Normal. She has an uncuffed tracheostomy tube in place that is capped. [address] [address] CONSULTATION Name: EDEN DUARTE Room #: [address] [place] [address] [place] ..#: [id number] Admission: 04/12/18 Attend Phys: Dheeraj Chadwick MD Discharge: 05/01/18 Date of : 61 Report #: [id number] The tracheostomy tract is well epithelialized. ASSESSMENT: History of a previous right hemispheric cerebrovascular accident with more acute left hemispheric cerebrovascular accident, history of chronic respiratory failure with trach in place for a long time; however, she is tolerating the cap trial without difficulty and has clearance from both Pulmonary and Speech standpoint that she no longer needs the tracheostomy in place for maintenance of her airway. RECOMMENDATION: She certainly is a candidate for trach removal. The patient does not communicate well in [place], so by phone, I just talked with her relatives who served as intermediary I explained that the tracheostomy tube could be removed. It would take several weeks for the tract to close. There is a possibility that the tract will not close and she may well require surgery to close at a later date. I also gave the option of non-removal and leaving it in place. She communicated these instructions to her and she verbally confirmed that she wanted the tracheostomy tube removed. This was accomplished without any difficulty. There is no sign of excessive granulation tissue in the tracheostomy tract. After removal, a 4 x 4 was folded was quartet and placed over this with mildly occlusive dressing. Nursing instructions were given to change the 4 x 4 as it becomes soiled or on an as needed basis. She can be discharged with the same nursing instructions. It will take several weeks usually for this to close fully. I would be happy to see her as an outpatient should she not have complete closure or she can follow up with her regular doctor or ammonia distiller. Thank you for this consultation. <ELECTRONICALLY SIGNED> By: Francisco Edge MD 05/02/18 [id number] Francisco Edge MD /nt
[2018-05-03] MEDS ORDERED: LISINOPRIL5 MG PO (13:44)
== END 2018-05-01 14:50 | disposition home health service (06) | DRG 64 ==
LOC: ENTRNSPT 05-01 14:29 → EDTRNSPT 05-01 14:29 → EDTRNSPTSTS 05-01 14:30
PROVIDERS: Internal Medicine; Nurse Practitioner; Nurse Practitioner Family; ADMIT Physical Medicine & Rehabilitation
DX: I61.1 Nontraumatic intracerebral hemorrhage in hemisphere, cortical (principal); I63.9 Cerebral infarction, unspecified; J96.10 Chronic respiratory failure, unspecified whether with hypoxia or hypercapnia; I69.154 Hemiplegia and hemiparesis following nontraumatic intracerebral hemorrhage affecting left non-dominant side; E11.9 Type 2 diabetes mellitus without complications; I10 Essential (primary) hypertension; E78.5 Hyperlipidemia, unspecified; M19.90 Unspecified osteoarthritis, unspecified site; F01.50 Vascular dementia, unspecified severity, without behavioral disturbance, psychotic disturbance, mood disturbance, and anxiety; R29.810 Facial weakness; K59.00 Constipation, unspecified; K08.89 Other specified disorders of teeth and supporting structures; Z91.14 Patient's other noncompliance with medication regimen; Z93.0 Tracheostomy status; Z79.4 Long term (current) use of insulin; Z79.899 Other long term (current) drug therapy
CPT/HCPCS: 10112